=== PATIENT | male | born 1975 | race African-American/Black ===

== ENCOUNTER 2023-01-04 22:36 | Emergency (ER) | payer OTHER ==
[~2023-01-04] VITALS: Ht 177.8 cm; Wt 51.7 kg
[2023-01-04 23:06] VITALS: BP 148/108
[2023-01-05] MEDS ORDERED: LIDOCAINE 1% HCL (LOCAL ANESTH.) INJ 20ML MDV ID ONE (01:55)
[2023-01-05] MEDS ORDERED: TETANUS-DIPTH-ACEL PERTUSSIS 0.5ML SYR Tdap IM ONE (02:00)
[2023-01-05] MEDS ORDERED: CEPH-510 PO (02:48)
== END 2023-01-05 03:20 | disposition home or self-care (01) ==
LOC: ER 22:36
DX: S61.511A Laceration without foreign body of right wrist, initial encounter (principal); J45.909 Unspecified asthma, uncomplicated; I10 Essential (primary) hypertension; F17.210 Nicotine dependence, cigarettes, uncomplicated; F12.10 Cannabis abuse, uncomplicated; W25.XXXA Contact with sharp glass, initial encounter; Y93.89 Activity, other specified; Y92.89 Other specified places as the place of occurrence of the external cause; Y99.8 Other external cause status
CPT/HCPCS: 12002; 99283; J2001; 90715